=== PATIENT | male | born 1965 | race Caucasian/White ===

== ENCOUNTER → 2018-05-25 | Outpatient (CLI) | payer OTHER ==
[~2018-05-25] MED LIST: DIPH0.5S4 IM; LOSA100T69 PO; MELO-207 PO; ROSU20TA23 PO; SILD100T59 PO; SULF-198 PO
[2018-05-25 10:46] LABS: PLATELET COUNT, AUTOMATED 185 K/uL (150-450)
[2018-05-25 11:05] LABS: LDL CHOLESTEROL 167 mg/dl
== END ==
LOC: LAB 10:14
PROVIDERS: ATTEND Internal Medicine
DX: E78.5 Hyperlipidemia, unspecified (principal); R51 Headache; E34.9 Endocrine disorder, unspecified; I10 Essential (primary) hypertension
CPT/HCPCS: 36415; 81001; 82040; 82247; 82310; 82374; 82435; 82465; 82565; 82947; 83001; 83002; 83718; 84075; 84132; 84146; 84153; 84155; 84295; 84305; 84402; 84403; 84439; 84443; 84450; 84460; 84478; 84520; 85025

== ENCOUNTER 2018-06-05 16:15 | Outpatient (RCR) | payer OTHER ==
[~2018-06-05 16:15] MED LIST changes: +DIA5 PO; -LOSA100T69 PO; +LOSA100T75 PO
--- NOTE | 2018-06-06 07:55 | PT INITIAL EVALUATION ---
MEDICAL DIAGNOSIS: chronic low back TREATMENT DIAGNOSIS: same DATE OF ONSET: 06/06/16 SUBJECTIVE: Christiano Ramírez presents to physical therapy with chronic low back pain that started approximately 37 years ago with the pain getting worse the last 2.5 years ago. He reports that he had an MRI with an orthopedic consult approximately one year ago and minimal to no problems were detected. 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 He reports that his pain is better with walking, when staying still, in the am, as the day progresses, standing, and walking. He rates his current pain to be 2/10 and located in the center of his low back; however, he reports that following a day of operating the heavy equipment that his pain radiates from his L to R sides of the center of his low back region. He reports that he feels like his low back pain is staying the same. He reports that he has numbness on his R IT band that has stayed the same for about 2.5 years. He denies any pain with coughing, sneezing, or straining. He denies unexplained weight loss. He denies night pain and he reports that he has normal bladder control. He reports that he stays active with core strengthening and running on a treadmill. Pain location is L2-5 central spinous processes and described as achy (I). REHAB PROBLEM LIST: Increased Pain Decreased ROM Decreased Strength Decreased Endurance Decreased Function Decreased ADL's PREVIOUS MEDICAL HISTORY: See EMR OCCUPATION: [employer] OBJECTIVE: Posture: He demonstrates normal posture mechanics when sitting and feels better when sitting in a more upright position ROM: Trunk AROM: flexion: minimal restriction with muscular end feel. extension: minimal restriction with muscular end feel. side gliding R: NIL with normal end feel. side gliding L: minimal restriction with empty end feel. Strength: B hip flexion, B hip adduction, B hip abduction, B hip extension, B knee extension, B ankle DF, and B ankle PF: 5/5 with no pain. R knee flexion: 4/5 with pain. L knee flexion: 5/5 without any pain. Palpation: TTP: over central spinous process of L2-5 Sensation: R IT band (from hip to knee) decreased as compared to L IT band region Special Tests: Repeated extension: increased pain during the test and better following the test with abolished pain with R side gliding. Mobility: Independent Gait: He demonstrated normal gait mechanics ASSESSMENT: Christiano will benefit form skilled physical therapy to address the listed impairments to improve function and QOL. His provisional classification is posterior derangement that responded well to extension based principles and abolished his low back pain and improved trunk AROM. He is independent on his specific exercise and his sitting posture. Furthermore, he R IT band sensation changed along with increased or return of strength in his R hamstring from 4/5 to 5/5 following the session. Short Term Goals 2 weeks: Pt will demonstrate centralized low back pain to improve function and QOL. 4 weeks: Pt will demonstrate abolished low back pain to improve function and QOL. 6 weeks: Pt will demonstrate abolished low back pain and return to full function without any low back pain to improve function and QOL. Patient's Goals reduce pain with heavy equipment operation PLAN: Patient to be seen for Manual Therapy/STM/MET Strengthening/condition Range of Motion Spinal Stabilization Work Hardening/Cond Stretching Neuromuscular Re-ed Closed Chain Program Posture/Body mechanics Home Exercise Program Therapeutic Activities 2x/Week for 6 Weeks If you have any questions, comments, or concerns about this report or plan, please contact me at . Thank you, Jon Espinal, PT, DPT [facility]
[2018-07-05] MEDS ORDERED: VALS320T12 PO (15:12)
== END 2018-06-05 18:00 | disposition home or self-care (01) ==
LOC: PT 16:15
PROVIDERS: ATTEND Internal Medicine
DX: M54.9 Dorsalgia, unspecified (principal)
CPT/HCPCS: 97161

== ENCOUNTER → 2018-06-07 | Outpatient (CLI) | payer OTHER ==
[~2018-06-07] MED LIST changes: +GADOBENATE 529MG/1ML 15ML VIAL IVP ONE; +NS(*) 0.9% 50 ML BAG 50 ML ONE
--- NOTE | 2018-06-07 10:37 | RADIOLOGY IMAGING REPORT ---
[place] [facility] [place]IENT NAME: Christiano Ramírez : 1965 MR: [id number] V: [id number] EXAM DATE: ORDERING PHYSICIAN: LANG ARANDA TECHNOLOGIST: Location: [facility] Patient: Christiano Ramírez : 1965 Visit/Account:[id number] Date of Sevice: 06/07/2018 EXAMINATION: MRI pituitary protocol without and with intravenous contrast HISTORY: Elevated testosterone. Headache. COMPARISON: Head CT without and with IV contrast dated 10/05/2016. TECHNIQUE: Multiplanar, multisequence pituitary protocol MRI without and with IV contrast. CONTRAST: 15 mL of IV MultiHance FINDINGS: Pituitary: Pituitary gland: Negative. Cavernous sinuses: Negative. Suprasellar cistern: Negative. Visualized optic nerves / chiasm / tracts: Negative. Rest of brain: 7 x 4 mm enhancing mass in right Meckel's cave (series 20, image 10). Mild chronic wh ite matter disease is nonspecific but most likely represents chronic microvascular ischemia. Small c yst or polyp in the left maxillary sinus. Leftward nasal septal deviation anteriorly. Rightward suly al septal deviation posteriorly. IMPRESSION: 1. Normal MRI of the pituitary gland. 2. 7 x 4 mm enhancing mass in right Meckel's cave (series 20, image 10). This is nonspecific but mo st likely a benign schwannoma. This was present on the contrast-enhanced head CT dated 10/05/2016 and is not significantly changed. 3. Mild chronic white matter disease is nonspecific but most likely represents chronic microvascular ischemia. 4. Small cyst or polyp in the left maxillary sinus. Leftward nasal septal deviation anteriorly. Ri ghtward nasal septal deviation posteriorly. Report Dictated By: Jose Go MD at 06/07/2018 10:25 AM Report E-Signed By: Jose Go MD at 06/07/2018 10:32 AM WSN:[id number]
== END ==
LOC: MRI 06:50
PROVIDERS: ATTEND Internal Medicine
DX: D43.3 Neoplasm of uncertain behavior of cranial nerves (principal); E34.9 Endocrine disorder, unspecified; R90.82 White matter disease, unspecified; J34.1 Cyst and mucocele of nose and nasal sinus
CPT/HCPCS: 70553; A9577; J7050

== ENCOUNTER → 2018-07-27 | Outpatient (CLI) | payer OTHER ==
[~2018-07-27] MED LIST changes: -GADOBENATE 529MG/1ML 15ML VIAL IVP ONE; -NS(*) 0.9% 50 ML BAG 50 ML ONE; +VALS320T12 PO
[2018-07-27 08:09] LABS: LDL CHOLESTEROL 70 mg/dl
== END ==
LOC: LAB 07:03
PROVIDERS: ATTEND Internal Medicine
DX: E78.5 Hyperlipidemia, unspecified (principal); I10 Essential (primary) hypertension; R51 Headache; R94.5 Abnormal results of liver function studies; E78.00 Pure hypercholesterolemia, unspecified
CPT/HCPCS: 36415; 80074; 82040; 82247; 82310; 82374; 82435; 82465; 82565; 82728; 82947; 83540; 83550; 83718; 84075; 84132; 84155; 84295; 84450; 84460; 84478; 84520; 86038

== ENCOUNTER → 2018-08-07 | Outpatient (CLI) | payer OTHER ==
--- NOTE | 2018-08-07 09:15 | RADIOLOGY IMAGING REPORT ---
FACILITY: [facility] - [place] PATIENT NAME: Christiano Ramírez : 1965 MR: [id number] V: [id number] EXAM DATE: ORDERING PHYSICIAN: LANG ARANDA TECHNOLOGIST: Location: [facility] Patient: Christiano Ramírez : 1965 Visit/Account:[id number] Date of Sevice: 08/07/2018 EXAMINATION: Abdominal ultrasound complete HISTORY: Elevated LFTs COMPARISON: None. FINDINGS: The visible pancreas is normal. The visible aorta and IVC are normal. The liver is normal in echogenicity and size. The main portal vein is patent with expected direction al flow. The gallbladder is normal without stone or wall thickening. Negative sonographic Vasquez sign. Normal right kidney measures 11.1 cm sagittal dimension. The extrahepatic bile duct is normal measuring 3 mm. IMPRESSION: Normal right upper quadrant ultrasound. Report Dictated By: Paulie White MD at 08/07/2018 9:09 AM Report E-Signed By: Paulie White MD at 08/07/2018 9:11 AM WSN:[email or web address]
== END ==
LOC: US 01:29
PROVIDERS: ATTEND Internal Medicine
DX: R94.5 Abnormal results of liver function studies (principal)
CPT/HCPCS: 76705

== ENCOUNTER 2018-10-01 09:40 | Emergency (ER) | payer OTHER ==
[~2018-10-01 09:40] MED LIST changes: +IRBE150T7 PO; -ROSU20TA23 PO; +ROSU20TA24 PO
--- NOTE | 2018-10-01 09:42 | ER Report ---
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 Patient states last tetanus was less than 5 years ago. No other injuries or complaints at this time. Patient is left-hand dominant. Allergies: Coded Allergies: No Known Drug Allergies (Unverified , 03/07/16) Home Meds Active Scripts Hydrocodone Bit/Acetaminophen (HYDROCODON-ACETAMINOPHEN 5-325) 1 Each Tablet, 1 EACH PO Q4H for PAIN, #15 TAB 0 Refills Prov:HARDEEP EDGAR MD 10/01/18 Cephalexin 500 Mg Tab (KEFLEX 500 MG TAB) 500 Mg Tablet, 500 MG PO Q6H for 5 Days, #20 TAB 0 Refills Prov:HARDEEP EDGAR MD 10/01/18 Rosuvastatin Calcium (CRESTOR) 20 Mg Tablet, 20 MG PO QDAY, #90 TAB 3 Refills Prov:LANG ARANDA MD 07/28/18 Sildenafil Citrate (VIAGRA) 100 Mg Tablet, 0.5 TAB PO PRN, #6 TAB 12 Refills Prov:BERNARD JOHNSON MD 10/06/17 Reported Medications Losartan Potassium (LOSARTAN POTASSIUM) 100 Mg Tablet, 100 MG PO QDAY 10/01/18 Discontinued Scripts Irbesartan (IRBESARTAN) 150 Mg Tablet, 150 MG PO QDAY, #90 TAB 3 Refills Prov:LANG ARANDA MD 09/29/18 Meloxicam (MELOXICAM) 15 Mg Tablet, 15 MG PO QDAY PRN for back pain, #30 TAB 3 Refills Prov:LANG ARANDA MD 05/25/18 Valsartan (DIOVAN) 320 Mg Tablet, 0.5 TAB PO QDAY, #90 TAB Prov:LANG ARANDA MD 07/28/18 Past Medical/Surgical History Noncontributory towards this chief complaint Hx Smoking: No Smoking Status: Never Smoker Hx Substance Use Disorder: No Hx Alcohol Use: Yes Constitutional Vital Sign - Last 24 Hours 10/01/18 09:44 Temp 98.4 Pulse 90 Resp 20 Pulse Ox 96 O2 Delivery Room Air Physical Exam Examination of the Right hand reveals no acute deformity. The patient is able to give a thumbs up sign, is able to make an okay sign, and is able to AB duct the fingers. Sensation is intact over the dorsal 1st web space, the volar aspect of the 2nd finger, and the volar aspect of the 5th finger. Capillary refill is brisk. There is an avulsion of the nail that is complete to the right 5th pinky finger. Medical Decision Making EKG/Imaging Imaging FACILITY: [facility] - [place] PATIENT NAME: Christiano Ramírez : 1965 MR: [id number] V: [id number] EXAM DATE: ORDERING PHYSICIAN: HARDEEP EDGAR TECHNOLOGIST: Location: [facility] - [place] Patient: Christiano Ramírez : 1965 Visit/Account:[id number] Date of Sevice: 10/01/2018 FINGER RIGHT 5TH DIGIT Indication: injury Comparison: None. Findings: There is a comminuted fracture of the tuft of the distal phalanx right hand little finger. The middle and proximal phalanx are normal. Soft tissues are unremarkable. IMPRESSION: Comminuted fracture of the tuft of the distal phalanx little finger right hand. Report Dictated By: Rivas Chavez at 10/01/2018 10:10 AM Report E-Signed By: Rivas Chavez at 10/01/2018 10:11 AM WSN:[id number] ED Course/Re-evaluation ED Course 10/01/2018 9:50:57 am tetanus status is up-to-date. Plan will be x-ray of the right 5th finger likely with primary repair to follow. Procedure: Laceration repair. Verbal consent was obtained from the patient. The 0.5 cm laceration on the 5th finger of the right hand was anesthetized using a digital block in the usual fashion. The wound was lanced, draped and explored to its base with a gloved finger. No tendon injury was identified. The nail matrix was avulsed and there may be a slight amount of exposed bone however there is good tissue coverage. The wound was repaired with 3 single interrupted 5-0 Ethilon sutures. The wound repair was simple. The procedure was performed by myself. Decision to Disposition Date: Oct 01, 2018 Decision to Disposition Time: 10:34 Depart Departure Latest Vital Signs Vital Signs Date Time Temp Pulse Resp B/P (MAP) Pulse Ox O2 Delivery O2 Flow Rate FiO2 10/01/18 09:44 98.4 90 20 96 Room Air Impression: Primary Impression: Finger laceration Condition: Improved Disposition: HOME OR SELF-CARE Referrals: LANG ARANDA MD (PCP) NANO ARGUETA MD follow up in one oo two weeks for recheck and evaluation of wound healing New Scripts Hydrocodone Bit/Acetaminophen (HYDROCODON-ACETAMINOPHEN 5-325) 1 Each Tablet 1 EACH PO Q4H for PAIN, #15 TAB 0 Refills Prov: HARDEEP EDGAR MD 10/01/18 Cephalexin 500 Mg Tab (KEFLEX 500 MG TAB) 500 Mg Tablet 500 MG PO Q6H for 5 Days, #20 TAB 0 Refills Prov: HARDEEP EDGAR MD 10/01/18 Departure Forms: ER Transition Record, Medications Reconciliation, Off Work/School Form, School or Work Release?: Work Number of days to be released: 2 Patient Portal Information Patient Instructions: Finger Fracture (DC), Finger Laceration (ED) Problem Qualifiers Primary Impression: Finger laceration Encounter type: initial encounter Finger: little finger Damage to nail status: with damage Foreign body presence: without foreign body Laterality: right Qualified Codes: S61.316A - Laceration without foreign body of right little finger with damage to nail, initial encounter HARDEEP EDGAR MD Oct 01, 2018 09:42
[2018-10-01] MEDS ORDERED: LOSA100T75 PO (09:47)
--- NOTE | 2018-10-01 10:14 | RADIOLOGY IMAGING REPORT ---
FACILITY: [facility] PATIENT NAME: Christiano Ramírez : 1965 MR: [id number] V: [id number] EXAM DATE: ORDERING PHYSICIAN: HARDEEP EDGAR TECHNOLOGIST: [place] [facility] [place] Ramí[place] : 1965 Visit/Account:[id number] Date of Sevice: 10/01/2018 FINGER RIGHT 5TH DIGIT Indication: injury Comparison: None. Findings: There is a comminuted fracture of the tuft of the distal phalanx right hand little finger. The middle and proximal phalanx are normal. Soft tissues are unremarkable. IMPRESSION: Comminuted fracture of the tuft of the distal phalanx little finger right hand. Report Dictated By: Rivas Chavez at 10/01/2018 10:10 AM Report E-Signed By: Rivas Chavez at 10/01/2018 10:11 AM WSN:[id number]
[2018-10-01] MEDS ORDERED: CEPH500T7 PO (10:38)
[2018-10-01] MEDS ORDERED: HYDR-385 PO (10:38)
[2018-10-01 10:54] VITALS: BP 151/98
== END 2018-10-01 10:55 | disposition home or self-care (01) ==
LOC: ER 09:56
DX: S61.316A Laceration without foreign body of right little finger with damage to nail, initial encounter (principal); S62.666A Nondisplaced fracture of distal phalanx of right little finger, initial encounter for closed fracture; W31.2XXA Contact with powered woodworking and forming machines, initial encounter
CPT/HCPCS: 99283